=== PATIENT | female | born 1970 | race Two or more races ===

== ENCOUNTER → 2016-07-24 | Outpatient (REF) | payer BC, OTHER ==
[2016-07-24 19:21] LABS: RBC, URINE 0-1 /hpf (0-3); SQUAMOUS EPITHELIAL CELL URINE NONE SEEN /hpf (SMALL AMT); WBC, URINE 0-1 /hpf (0-3)
[2016-07-24 19:22] LABS: BACTERIA, URINE NONE SEEN; HYALINE CAST, URINE NONE SEEN /lpf (0-1); MICROSCOPIC EXAM PERFORMED
== END ==
LOC: M SMT 16:46
PROVIDERS: ATTEND Specialist
DX: R32 Unspecified urinary incontinence (principal)

== ENCOUNTER → 2022-04-06 | Outpatient (CLI) | payer OTHER | LOC: M RAD 14:01 | PROVIDERS: ATTEND Internal Medicine | DX: Z12.2 Encounter for screening for malignant neoplasm of respiratory organs (principal); F17.210 Nicotine dependence, cigarettes, uncomplicated; R91.8 Other nonspecific abnormal finding of lung field; I25.84 Coronary atherosclerosis due to calcified coronary lesion ==